=== PATIENT | male | born 1995 ===

== ENCOUNTER 2020-08-02 12:09 | Outpatient (REF) | payer OTHER, SELFPAY | END 2020-08-02 12:10 | disposition home or self-care (01) | LOC: HO.LAB 12:09 | PROVIDERS: Visit Provider Internal Medicine | DX: Z20.828 Contact with and (suspected) exposure to other viral communicable diseases (principal) | CPT/HCPCS: C9803; U0003 ==

== ENCOUNTER 2021-06-21 19:45 | Emergency (ER) | payer OTHER, SELFPAY ==
--- NOTE | ~2021-06-21 | XR_ITS ---
EXAMINATION: XR RIBS, LEFT CLINICAL INFORMATION: Chest wall pain COMPARISON: Trauma TECHNIQUE: Single view chest and 3 detailed views of left RIBS FINDINGS: Single view of the chest shows no pneumothorax or effusion. Lung clemens are grossly clear. Detail views of the left ribs do not demonstrate fracture. XR/XR ribs LT min 3V w CXR1V IMPRESSION: No evidence for left rib fracture. No underlying pneumothorax or effusion.
[2021-06-21 20:26] VITALS: BP 105/67; PULSE 75; RESP 16; TEMP 37.3; O2SAT 96; BMI 27.3
--- NOTE | 2021-06-21 21:18 | ECG_ITS ---
Test Reason : CHEST WALL PAIN Blood Pressure : / mmHG Vent. Rate : 068 BPM Atrial Rate : 068 BPM P-R Int : 168 ms QRS Dur : 094 ms QT Int : 380 ms P-R-T Axes : 057 035 018 degrees QTc Int : 404 ms Normal sinus rhythm Normal ECG No previous ECGs available Referred By: Dixie Lainez Electronically Signed By:JUSTIN RANGEL MD
[2021-06-21 21:40] LABS: MANUAL DIFF FLAG NO
[2021-06-21 21:42] LABS: Basophils Absolute Auto 0.1 X10*3/uL (0.0-0.2); Basophils Percent Auto 0.5 % (0-2); Eosinophils Absolute Auto 0.1 X10*3/uL (0.0-0.4); Eosinophils Percent Auto 0.8 % (0-4); Hematocrit 42.7 % (42-52); Hemoglobin 15.1 g/dl (14.0-18.0); Imm Gran Abs Auto 0.02 X10*3/uL (0.00-0.03); Imm Gran Pct Auto 0.2 % (0.0-0.4); Lymphocytes Absolute Auto 4.1 X10*3/uL (1.2-4.9); Lymphocytes Percent Auto 38.7 % (20-40); Mean Corpuscular HGB Conc 35.4 g/dl (31.0-36.0); Mean Corpuscular Hemoglobin 31.7 pg (27.0-33.0); Mean Corpuscular Volume 89.7 fL (80-98); Mean Platelet Volume 10.2 fL (9.4-12.4); Monocytes Absolute Auto 0.9 X10*3/uL (0.1-1.2); Monocytes Percent Auto 8.6 % (2-11); Neutrophils Absolute Auto 5.5 X10*3/uL (2.0-8.3); Neutrophils Percent Auto 51.2 % (45-73); Platelet Count 256 X10*3/uL (160-400); Red Blood Count 4.76 X10*6/uL (4.60-5.80); Red Cell Distribution Width 12.3 % (11.0-16.0); White Blood Count 10.6 X10*3/uL (4.8-10.8)
[2021-06-21 21:54] LABS: INTERNATIONAL NORM RATIO 1.1 (0.9-1.1); Prothrombin Time 12.4 SEC (9.9-13.0)
[2021-06-21 21:57] LABS: Alanine Aminotransferase 18 U/L (0-40); Albumin Level 4.4 g/dL (3.5-5.0); Alkaline Phosphatase 60 U/L (39-117); Anion Gap 12 (12-20); Aspartate Amino Transferase 17 U/L (5-37); Bilirubin Total 0.5 mg/dL (0.0-1.0); Blood Urea Nitrogen 18 mg/dL (9-16); Calcium 9.3 mg/dL (8.4-10.2); Carbon Dioxide 26 mmol/L (22-29); Chloride 105 mmol/L (96-108); Creatinine Clr Calc Pharmacy 102.2; Estimated Glomerular Filt Rate > 60; Glucose Random 112 mg/dL (60-115); Potassium 3.7 mmol/L (3.3-5.1); Sodium 139 mmol/L (135-145); Total Protein 7.5 g/dL (6.5-8.0)
[2021-06-21 22:03] LABS: Troponin-I High Sensitivity < 3.5 ng/L (<3.5-35.0)
--- NOTE | 2021-06-21 22:03 | ED.CHESTPAIN ---
HPI - Chest Pain General Chief Complaint: General Medical Stated Complaint: chest muscles are sore when lifting arm Time Seen by Provider: 06/21/21 20:45 Source: patient Mode of arrival: ambulatory Limitations: language barrier (Mexican-speaking) History of Present Illness HPI narrative: 25-year-old male with no significant past medical history presenting to the ED with complaints of left-sided chest pain that is radiating to his left arm that is worse with movement of the left shoulder for the past 2 days worse today. Denies any dizziness, headaches, changes in vision, nausea/vomiting, jaw pain, paresthesias, dyspnea on exertion, orthopnea, shortness of breath, palpitations, back pain, abdominal pain, lower extremity edema, recent travel, IV drug use, history of hypercoagulation disorder, recent surgery, any estorgen usage, any hx of surgery/immobilization, long travel, IVF filter or any other symptoms complaints of concerns at this time. MD complaint: chest pain Onset (ago): day(s) (Two days) Timing of current episode: constant Prior episodes: No Onset: other (Cannot recall) Pain location: left chest Pain radiation: left arm Severity: mild Quality: aching Relieving factors: nothing Exacerbating factors: other (Movement of the left shoulder) Treatment prior to arrival: none Risk Factors Coronary artery disease risk factors: none Thoracic aortic dissection risk factors: none Related Data Previous Rx's Medication Instructions Recorded cyclobenzaprine 10 mg tablet 10 mg PO Q8H PRN #14 tab 06/21/21 naproxen 500 mg tablet 500 mg PO BID PRN #14 tab 06/21/21 Allergies Allergy/AdvReac Type Severity Reaction Status Date / Time No Known Allergies Allergy Verified 06/21/21 20:25 Review of Systems Review of Systems: Constitutional : No Weight loss, No Fever, No Chills, No Night Sweats, No Fatigue, No Malaise ENT/Mouth : No Hearing loss, No Ear Pain, No Nasal Congestion, No Sinus Pain, No Hoarseness, No sore throat, No Rhinorrhea, No Swallowing Difficulty Eyes: No Eye Pain, No Swelling, No Redness, No Foreign Body, No Discharge, No Vision Changes Cardiovascular : + Chest Pain, No SOB, No Dyspnea on Exertion, No Orthopnea, No Edema, No Palpitations Respiratory : No Cough, No Sputum, No Wheezing, No Smoke Exposure, No Dyspnea Gastrointestinal : No Nausea, No Vomiting, No Diarrhea, No Constipation, No abdominal Pain, No Hematochezia, No Melena Genitourinary : no irregular bleeding, No Dysuria, No Urinary Frequency, No Hematuria, No Urinary Incontinence, No Urgency, No Flank Pain, No Urinary Flow Changes, No Hesitancy Musculoskeletal : No joint pain, No Myalgias, No Joint Swelling Skin : No Skin Lesions, No rash Neuro : No Weakness, No Numbness, No Paresthesias, No Loss of Consciousness, No Dizziness, No Headache Psych : No Anxiety/Panic, No Depression, No SI/HI/AH/VH, No Social Issues, Heme/Lymph: No Bruising, No Bleeding,No Lymphadenopathy Endocrine : No Polyuria, No Polydipsia, No Temperature Intolerance Yes all other systems are reviewed and are negative [facility] Past Medical History Attestation statement: The following information was validated with the patient. Social History Social History Advance Directives: No Advance Directives Information Provided: No Physical Exam Vital Signs: Vital Signs: Last Vital Signs Temp 99.1 F 06/21/21 20:26 Pulse 75 06/21/21 20:26 Resp 16 06/21/21 20:26 BP 105/67 06/21/21 20:26 Pulse Ox 96 06/21/21 20:26 Body Mass Index 27.3 vital signs have been reviewed as normal and appeared to be correct. Blood pressure normal. Heart rate normal. Respiration rate normal. Temperature normal. Oxygen saturation normal. Appearance: Alert. Oriented X3. No acute distress. Head: Normal external exam. Normocephalic. Atraumatic. Eyes: PERRLA. EOMI. Conjunctiva and sclera normal. Eyelids normal. ENT: Pharynx normal. Uvula midline. Moist mucous membranes. Neck: Normal inspection. Neck supple. FROM. No adenopathy. Thyroid Normal. No meningeal signs. No neck mass noted. CVS: Normal heart rate and rhythm. Heart sound normal. Pulses normal throughout. No murmurs/rales/gallops. Respiratory: No respiratory distress. Painless inspiration. Breath sounds normal. No wheezes/rales/rhonchi noted. Chest nontender. No accessory muscle usage noted or decreased air movement noted. Back: Full range of motion noted. No rashes/lesion/induration/fluctuance or signs of infection noted. Skin: Skin warm and dry. Normal skin color. Normal skin turgor. No rashes/lesions/lacerations noted. Extremities: No lower extremity edema. No calf tenderness noted. Extremities exhibit normal range of motion. Extremities nontender. Neuro: Oriented X 3. No motor deficit. No sensory deficit. Reflexes normal. Normal steady gait. No focal neuro deficits noted. Vascular: + radial pulses/+ 2 distal pedal pulses/+2 dorsalis pedis b/l. Normal cap refill. No cyanosis noted to upper extremity nails and lower extremity toes nails. Course Course Course Narrative: 21:20pm - 25-year-old male with no significant past medical history presenting to the ED with complaints of left-sided chest pain that is radiating to his left arm that is worse with movement of the left shoulder for the past 2 days worse today. Plan: Labs including troponin, chest x-ray, EKG then re-evaluate. Reevaluation(s) Reevaluation #1: - labs obtained including troponin and all within normal limits. EKG within normal limits no acute processes are noted. And no ischemic changes are noted. X-ray negative for any acute processes. Patient most likely muscular strain. Will DC home with muscle relaxants and instructions return if any new or worsening symptoms and to follow up with primary care provider. Patient understands agrees with this plan. Time: 22:15 [facility] - Chest Pain Medical Records Data Attestation: I reviewed the patient's medical records. Lab Data Attestation: I reviewed the patient's lab results. Result diagrams: 06/21/21 21:36 06/21/21 21:36 Labs: Lab Results 06/21/21 06/21/21 06/21/21 Range/Units 21:36 21:36 21:36 WBC 10.6 (4.8-10.8) X10*3/uL RBC 4.76 (4.60-5.80) X10*6/uL Hgb 15.1 (14.0-18.0) g/dl Hct 42.7 (42-52) % MCV 89.7 (80-98) fL MCH 31.7 (27.0-33.0) pg MCHC 35.4 (31.0-36.0) g/dl RDW 12.3 (11.0-16.0) % Plt Count 256 (160-400) X10*3/uL MPV 10.2 (9.4-12.4) fL Immature Gran % (Auto) 0.2 (0.0-0.4) % Neut % (Auto) 51.2 (45-73) % Lymph % (Auto) 38.7 (20-40) % [place] % (Auto) 8.6 (2-11) % Eos % (Auto) 0.8 (0-4) % Baso % (Auto) 0.5 (0-2) % Lymph # (Auto) 4.1 (1.2-4.9) X10*3/uL [place] # (Auto) 0.9 (0.1-1.2) X10*3/uL Eos # (Auto) 0.1 (0.0-0.4) X10*3/uL Baso # (Auto) 0.1 (0.0-0.2) X10*3/uL Abs Immat Gran (auto) 0.02 (0.00-0.03) X10*3/uL Absolute Neuts (auto) 5.5 (2.0-8.3) X10*3/uL Absolute Nucleated RBC 0.000 (0.0-0.012) X10*3/uL Nucleated RBC % (auto) 0.0 (0.0-0.2) /100WBC PT 12.4 (9.9-13.0) SEC INR 1.1 (0.9-1.1) Sodium 139 (135-145) mmol/L Potassium 3.7 (3.3-5.1) mmol/L Chloride 105 (96-108) mmol/L Carbon Dioxide 26 (22-29) mmol/L Anion Gap 12 (12-20) BUN 18 H (9-16) mg/dL Creatinine 1.05 (0.5-1.4) mg/dL Estim Creat Clear Calc 102.2 Estimated GFR > 60 Random Glucose 112 (60-115) mg/dL Calcium 9.3 (8.4-10.2) mg/dL Magnesium 2.0 (1.6-2.6) mg/dL Total Bilirubin 0.5 (0.0-1.0) mg/dL AST 17 (5-37) U/L ALT 18 (0-40) U/L Alkaline Phosphatase 60 (39-117) U/L Total Protein 7.5 (6.5-8.0) g/dL Albumin 4.4 (3.5-5.0) g/dL Imaging Data Chest x-ray: Attestation: I personally reviewed and interpreted this imaging study as follows: Radiologist's impression: FINDINGS: Single view of the chest shows no pneumothorax or effusion. Lung clemens are grossly clear. Detail views of the left ribs do not demonstrate fracture. XR/XR ribs LT min 3V w CXR1V IMPRESSION: No evidence for left rib fracture. No underlying pneumothorax or effusion. ECG Data ECG #1: Attestation: I personally reviewed and interpreted this ECG as follows: ECG interpretation date: 06/21/21 ECG interpretation time: 09:25 Interpretation: Normal sinus rhythm with a ventricular rate of 68 with a normal MO interval normal QRS duration normal QT/QTC interval. No acute ischemic change are noted. No prior EKGs to compare to in our system. Discharge Plan Discharge Clinical Impression: Muscle pain Patient Disposition: Home, Self-Care Instructions: Musculoskeletal Pain (ED) Prescriptions: New naproxen 500 mg tablet 500 mg PO BID PRN (Reason: pain) Qty: 14 RF: 0 cyclobenzaprine 10 mg tablet 10 mg PO Q8H PRN (Reason: Muscle spasm) Qty: 14 RF: 0 Referrals: Physician,None [Primary Care Provider] - 2 days (your pcp) Stand Alone Forms: Work/School Release Print Language: Mexican
== END 2021-06-21 22:26 | disposition home or self-care (01) ==
PROVIDERS: Physician Assistant Medical; Emergency Provider Internal Medicine
DX: M79.10 Myalgia, unspecified site (principal)
CPT/HCPCS: 36415; 71101; 80053; 83735; 84484; 85025; 85610; 93005; 99283; 99284

== ENCOUNTER 2023-01-23 20:51 | Emergency (ER) | payer OTHER, SELFPAY ==
[2023-01-23 21:17] VITALS: BP 127/81; PULSE 96; RESP 17; TEMP 37; O2SAT 96; BMI 29.5
== END 2023-01-24 01:06 | disposition left against medical advice (07) ==
LOC: HO.ED 01-24 01:06
PROVIDERS: Emergency Provider Emergency Medicine
DX: M54.50 Low back pain, unspecified (principal)
CPT/HCPCS: 99281; 99283

== ENCOUNTER 2023-01-30 03:20 | Emergency (ER) | payer OTHER, SELFPAY ==
[2023-01-30 03:30] VITALS: BP 121/80; PULSE 74; RESP 18; TEMP 36.8; O2SAT 97; BMI 29.5
--- NOTE | 2023-01-30 08:04 | ED.BACK ---
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 No direct injury no fall ambulatory as such no bladder or bowel involvement Related Data Previous Rx's Medication Instructions Recorded cyclobenzaprine 10 mg tablet 10 mg PO Q8H PRN Muscle spasm #14 06/21/21 tabs naproxen 500 mg tablet 500 mg PO BID PRN pain #14 tabs 06/21/21 cyclobenzaprine 10 mg tablet 10 mg PO Q8H #20 tabs 01/30/23 ibuprofen 600 mg tablet 600 mg PO Q6H PRN fever or pain 01/30/23 #30 tabs Allergies Allergy/AdvReac Type Severity Reaction Status Date / Time No Known Allergies Allergy Verified 01/30/23 03:33 Review of Systems Review of Systems: Yes all other systems are reviewed and are negative Physical Exam Vital Signs: Vital Signs: Last Vital Signs Temp 98.3 F 01/30/23 03:30 Pulse 74 01/30/23 03:30 Resp 18 01/30/23 03:30 BP 121/80 01/30/23 03:30 Pulse Ox 97 01/30/23 03:30 O2 Del Method Room Air 01/30/23 03:30 BMI result Body Mass Index 29.5 Back/Spine/Pelvis: Back/spine/pelvis image: 1. Diffuse lumbar paraspinal tenderness with spasm no midline tenderness SLR negative bilaterally neurovascular intact , sacral sensation intact Discharge Plan Discharge Clinical Impression: Strain of lumbar region Patient Disposition: Home, Self-Care Instructions: Low Back Strain (ED) Additional Instructions: Apply ice, rest at home Pain medication and muscle relaxants as prescribed Follow with PCP if not better Prescriptions: New cyclobenzaprine 10 mg tablet 10 mg PO Q8H Qty: 20 0RF ibuprofen 600 mg tablet 600 mg PO Q6H PRN (Reason: fever or pain) Qty: 30 0RF No Action naproxen 500 mg tablet 500 mg PO BID PRN (Reason: pain) Qty: 14 0RF cyclobenzaprine 10 mg tablet 10 mg PO Q8H PRN (Reason: Muscle spasm) Qty: 14 0RF Stand Alone Forms: Work/School Release
[2023-01-30] MEDS: Cyclobenzaprine HCl 10 MG TABLET PO (08:24)
[2023-01-30] MEDS: Ibuprofen 600 MG TABLET PO (08:24)
== END 2023-01-30 08:29 | disposition home or self-care (01) ==
PROVIDERS: Emergency Provider Internal Medicine
DX: S39.012A Strain of muscle, fascia and tendon of lower back, initial encounter (principal); X50.9XXA Other and unspecified overexertion or strenuous movements or postures, initial encounter; Y93.89 Activity, other specified; Y92.59 Other trade areas as the place of occurrence of the external cause; Y99.0 Civilian activity done for income or pay
CPT/HCPCS: 99283